=== PATIENT | female | born 1990 | race Caucasian/White ===

== ENCOUNTER 2017-02-17 11:21 | Emergency (ER) | payer OTHER ==
[2017-02-17 11:28] VITALS: TEMP 98.1
--- NOTE | 2017-02-17 11:40 | EDPHY ---
H & P Stated Complaint: SOB. Sent to [facility] Time Seen by Provider: 02/17/17 11:40 - Personal History LMP (Females 10-55): 22-28 Days Ago Current Tetanus/Diphtheria Vaccine: Yes Current Tetanus Diphtheria and Acellular Pertussis (TDAP): Yes - Medical/Surgical History Hx Asthma: Yes Hx Chronic Respiratory Disease: No Hx Diabetes: No Hx Cardiac Disease: No Hx Renal Disease: No Hx Cirrhosis: No Hx Alcoholism: No Hx HIV/AIDS: No Hx Splenectomy or Spleen Trauma: No Other PMH: WISDOM TEETH - Social History Smoking Status: Never smoked Constitutional: Initial Vital Signs Temperature (C) 36.7 C 02/17/17 11:25 Heart Rate 108 H 02/17/17 11:25 Respiratory Rate 19 02/17/17 11:25 Blood Pressure 127/83 H 02/17/17 11:25 O2 Sat (%) 100 02/17/17 11:25 O2 Delivery Mode Room Air Allergies/Adverse Reactions: No Known Allergies Allergy (Verified 12/23/15 08:01) Home Medications: Medication Instructions Recorded FLUoxetine [Prozac 20 MG (RX)] 20 mg PO DAILY 11/18/11 Tri-Sprintec Tablet 12/19/15 Ciprofloxacin [Cipro 500 mg] 500 mg PO BID #10 tab 12/23/15 Fluconazole [Diflucan] 150 mg PO ONCE #1 tab 12/23/15 Medical Decision Making ED Course/Re-evaluation: CHIEF COMPLAINT: Shortness of breath HISTORY OF PRESENT ILLNESS: Patient has a history of chronic asthma which gets exacerbated by allergies or upper respiratory infection. Several days ago she developed a viral upper respiratory infection. Her asthma has been getting a bit worse. She used her puffer which is albuterol 4 times this morning but it did not seem to help much. She went to urgent care get a duo nebulizer which helped her. She also had a chest x-ray which was unremarkable. The urgent care center here because they were concerned she may have a pulmonary embolus. Patient denies pleuritic chest pain. Patient denies tachypnea or tachycardia. Patient denies any recent travel or prolonged sitting. Patient denies any family history of blood clots. Patient denies any calf swelling or calf pain. REVIEW OF SYSTEMS: A 10 point review of systems was performed and is negative with the exception of the elements mentioned in the history of present illness. PHYSICAL EXAM: HR, BP, O2 Sat, RR. Temp noted General Appearance: Alert, well hydrated, appropriate, and non-toxic appearing. Head: Atraumatic without scalp tenderness or obvious injury Eyes: Pupils equal, round, reactive to light and accommodation, EOMI, no trauma , no injection. Ears: Clear bilaterally, no perforation, normal landmarks Nose: Atraumatic, no rhinorrhea, clear. Throat: There is no erythema or exudates, no lesions, normal tonsils, mucus membranes moist. Neck: Supple, 2+ carotid upstroke, nontender, no lymphadenopathy. Respiratory: No retractions, no distress, a few end-expiratory wheezes, and no accessory muscle use. Besides a few end-expiratory wheezes lungs are generally clear to auscultation Cardiovascular: Regular rate and rhythm, no murmurs, rubs, or gallops. Bilateral carotid, radial, dorsalis pedis, and posterior tibial pulses intact. Good capillary refill all extremities. Gastrointestinal: Abdomen is soft, nontender, non-distended, no masses, no rebound, no guarding, no peritoneal signs. Musculoskeletal: Normal active ROM of all extremities, atraumatic. Specifically no calf swelling or tenderness Neurological: Alert, appropriate, and interactive. The patient has normal DTRs and non-focal cranial nerves, motor, sensory, and cerebellar exam. Skin: No rashes, good turgor, no nodules on palpation. Past medical history: Asthma Past surgical history: Noncontributory Family history: Noncontributory specifically no clotting disorders Social history: Single, employed, does not abuse tobacco drugs or alcohol DIAGNOSTICS/PROCEDURES/CRITICAL CARE TIME: As interpreted by the patient from Urgent Care was unremarkable and she was told DIFFERENTIAL DIAGNOSIS: The differential diagnosis for the patient's shortness of breath included but was not limited to pneumonia, myocardial infarction, acute mountain sickness, high altitude pulmonary edema, congestive heart failure, and pulmonary embolus. MEDICAL DECISION MAKING: This patient is in no distress. She has no signs or symptoms consistent with pulmonary embolus in my opinion. She has chronic asthma which becomes exacerbated by things like upper respiratory infections and she has 1 of those. She improved significantly with a nebulizer treatment but still does not feel that her breathing is perfect. Will give her another duo nebulizer treatment here. Will also run a D-dimer even though I have a very very low pretest probability that this patient has a pulmonary embolus. I have also given this patient 125 Solu-Medrol and I will keep her on prednisone for 5 days Departure - Departure Disposition: Home, Routine, Self-Care Clinical Impression: Exacerbation of asthma Condition: Good Instructions: Bronchospasm (ED) Referrals: NONE *PRIMARY CARE P,. [Primary Care Provider] - As per Instructions
[2017-02-17] MEDS ORDERED: IPRATROPIUM/ALBUTEROL 3 ML DEYVIAL IH ONE (12:10)
[2017-02-17] MEDS ORDERED: methylPREDNISolone SOD SUCC 125 MG/2 ML VIAL IVP ONE (12:10)
[2017-02-17 13:13] VITALS: BP 114/74; PULSE 105; RESP 18; O2SAT 99
== END 2017-02-17 13:10 | disposition home or self-care (01) ==
DX: J45.901 Unspecified asthma with (acute) exacerbation (principal)
CPT/HCPCS: 96374